=== PATIENT | female | born 2000 | race Caucasian/White ===

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

== ENCOUNTER 2022-01-12 20:08 | Emergency (ER) | payer OTHER ==
[~2022-01-12] VITALS: Ht 175.3 cm; Wt 150.0 kg
[~2022-01-12 20:08] MED LIST changes: +BUSPAR10 MG PO; +DESYREL 100MG100 MG PO; +VYVANSE70 MG PO
[2022-01-12 20:25] VITALS: TEMP 97.4
[2022-01-12 21:18] LABS: TRICYCLIC ANTIDEPRESS URINE NEGATIVE
[2022-01-12 21:50] LABS: HEMATOCRIT 38.1 % (37.0-47.0); HEMOGLOBIN 12.7 g/dl (12.5-16.0); MEAN CELL VOLUME 80 fl (80.0-100.0); MEAN CORPUSCULAR HEMOGLOBIN 27 pg (27-31); MEAN CORPUSCULAR HGB CONC 33 g/dl (33.0-37.0); MEAN PLATELET VOLUME 9.3 fl (7.4-10.4); PLATELET COUNT 370 K/mm3 (130-400); RED BLOOD COUNT 4.77 M/mm3 (4.10-5.30); REDCELL DISTRIBUTION WIDTH-CV 13.3 % (11.5-14.5)
[2022-01-12 22:11] LABS: ALANINE AMINOTRANSFERASE 14 U/L (0-55); ALBUMIN 4.1 gm/dL (3.5-5.0); ALKALINE PHOSPHATASE 68 U/L (40-150); ANION GAP 11 mmol/L (7-16); AST,SGOT 14 U/L (5-34); BILIRUBIN,TOTAL 0.3 mg/dL (0.2-1.2); BLOOD UREA NITROGEN 13 mg/dL (7-19); CALCIUM 9.9 mg/dL (8.4-10.2); CARBON DIOXIDE 22 mmol/L (22-29); CHLORIDE 106 mmol/L (98-107); CREATININE, serum 0.73 mg/dL (0.57-1.11); GLUCOSE 85 mg/dL (70-99); POTASSIUM 3.8 mmol/L (3.5-4.5); SODIUM 139 mmol/L (136-145); TOTAL PROTEIN 8.2 gm/dL (6.2-8.1)
[2022-01-12 22:12] LABS: ALCOHOL(ethanol),MEDICAL < 10 mg/dL (0-10)
[2022-01-12 22:13] LABS: BASOPHIL 1 % (0-2); LYMPHOCYTE 45 % (20.0-51.0); MICROCYTOSIS 1+; NEUTROPHILS 51 % (42.0-75.2); PLATELET ESTIMATE NORMAL (NORMAL)
[2022-01-12 23:02] VITALS: BP 144/78; PULSE 76
== END 2022-01-12 23:02 | disposition home or self-care (01) ==
LOC: COL.ER 20:08
PROVIDERS: Personal Emergency Response Attendant
DX: F32.A Depression, unspecified (principal); U07.1 COVID-19; F17.290 Nicotine dependence, other tobacco product, uncomplicated